=== PATIENT | female | born 1960 | race American Indian/Alaskan Native ===

== ENCOUNTER → 2024-09-28 | Outpatient (CLI) | payer MEDICARE, MEDICAID, SELFPAY ==
--- NOTE | 2024-09-28 13:30 | XR_ITS ---
Examination: CT chest, without intravenous contrast. Sagittal and coronal 2-D reconstructions. Exam date and time: September 28, 2024 1406 hours Comparison January 03, 2024 INDICATIONS: Diagnosis acute and subacute respiratory condition, coughing shortness of breath beginning 2 weeks ago CTDI:vol (mGy) 24.6 DLP: (mGycm) 903 Technique: Multiple 3.0 mm axial sections of the chest to been obtained. Bone and lung density settings are obtained. Sagittal and coronal 2-D reconstructions have been obtained. Low dose protocols were performed. One or more of the following dose reduction techniques were used; automated exposure control, adjustment of the mA and/or KV according to patient size, use of iterative reconstruction technique. Findings: No thoracic aortic aneurysm dilatation Pulmonary artery segments are not remarkable No paratracheal tracheobronchial or bronchopulmonary adenopathy Mild atelectasis in the right middle lobe lingular segment and both bases No lobar pneumonia No pulmonary edema Fatty infiltration throughout the liver Contracted gallbladder Spleen is not enlarged No pancreatic mass Moderate thoracic spondylosis IMPRESSION: No mediastinal lymphadenopathy Mild atelectasis in the right middle lobe, lingular segment and both bases No lobar pneumonia No pulmonary edema
== END | disposition home or self-care (01) ==
LOC: CCTX 13:52
PROVIDERS: PCP Nurse Practitioner Family; Referring Provider Internal Medicine; Visit Provider Internal Medicine
DX: J98.11 Atelectasis (principal); R05.3 Chronic cough
CPT/HCPCS: 71250

== ENCOUNTER → 2025-05-10 | Outpatient (CLI) | payer MEDICARE, MEDICAID, SELFPAY ==
[2025-05-10 16:16] LABS: Basophils # (Auto) 0.1 Thou/mm3 (0.0-0.2); Basophils % (Auto) 1 % (0-2.5); Eosinophils # (Auto) 0.6 Thou/mm3 (0.0-0.5); Eosinophils % (Auto) 7 % (0-10); Hematocrit 45.0 % (36.0-46.0); Hemoglobin 14.8 g/dL (12.0-16.0); Immature Granulocytes Auto 0.04 Thou/mm3 (0.00-0.00); Lymphocytes # (Auto) 2.5 Thou/mm3 (1.0-4.8); Lymphocytes % (Auto) 31 % (10-50); Mean Corpuscular HGB Conc 32.9 g/dl (31.0-37.0); Mean Corpuscular Hemoglobin 32.0 pg (25.0-35.0); Mean Corpuscular Volume 97 fL (80-100); Monocytes # (Auto) 0.6 Thou/mm3 (0.0-0.8); Monocytes % (Auto) 7 % (0-12); Neutrophils # (Auto) 4.4 Thou/mm3 (1.8-7.7); Neutrophils % (Auto) 53 % (37-80); Nucleated Red Blood Cell # 0.00 Thou/mm3 (0.00-0.00); Nucleated Red Blood Cell % 0 /100 WBC (0); Platelet Count 247 Thou/mm3 (140-440); RDW Standard Deviation 45.3 fL (36.4-46.3); Red Blood Count 4.62 Miln/mm3 (4.00-5.20); White Blood Count 8.2 Thou/mm3 (3.6-11.0)
[2025-05-10 16:30] LABS: Glucose Estimated Average 111 mg/dL (80-131); Hemoglobin A1C 5.5 % Hgb (4.8-6.0)
[2025-05-10 16:41] LABS: Alanine Aminotransferase 33 U/L (10-49); Albumin, Serum 4.2 gm/dL (3.4-4.8); Albumin/Globulin Ratio 1.7 (1.2-2.2); Alkaline Phosphatase 102 U/L (46-116); Anion Gap 9 (7-16); Aspartate Amino Transferase 24 U/L (0-34); BUN/Creatinine Ratio 13 Ratio (12-20); Bilirubin,Total 0.4 mg/dL (0.3-1.2); Blood Urea Nitrogen 12 mg/dL (9-23); C-Reactive Protein < 0.5 mg/dL (0.0-0.9); Calcium 10.2 mg/dL (8.3-10.6); Calcium (Corrected) 10.2 mg/dL (8.5-10.1); Carbon Dioxide 28.6 mMol/L (20.0-31.0); Chloride 106 mMol/L (98-107); Creatinine (Component) 0.9 mg/dL (0.6-1.3); Globulin 2.5 gm/dL (2.3-3.5); Glucose 90 mg/dL (74-106); Osmolality,Calculated 286 (275-295); Potassium 4.4 mMol/L (3.4-5.1); Sodium 144 mMol/L (136-145); Total Protein 6.7 gm/dL (5.7-8.2); eGFR > 60 See Note
[2025-05-10 16:58] LABS: Sed Rate (ESR) 7 mm/hr (0-30)
== END | disposition home or self-care (01) ==
LOC: COPL 15:44
PROVIDERS: PCP Nurse Practitioner Family; Referring Provider Internal Medicine; Visit Provider Internal Medicine
DX: G89.29 Other chronic pain (principal); I10 Essential (primary) hypertension; J45.909 Unspecified asthma, uncomplicated; J45.991 Cough variant asthma; M05.79 Rheumatoid arthritis with rheumatoid factor of multiple sites without organ or systems involvement; M17.12 Unilateral primary osteoarthritis, left knee; M25.572 Pain in left ankle and joints of left foot; M54.42 Lumbago with sciatica, left side; M62.838 Other muscle spasm; R53.83 Other fatigue; R76.11 Nonspecific reaction to tuberculin skin test without active tuberculosis; Z79.899 Other long term (current) drug therapy
CPT/HCPCS: 36415; 80053; 83036; 85025; 85652; 86140

== ENCOUNTER 2025-09-10 07:07 | Emergency (ER) | payer MEDICARE, MEDICAID, SELFPAY ==
[2025-09-10] VITALS (10 sets, daily range): BP systolic 97–146; BP diastolic 62–92; PULSE 87–99; RESP 17–21; TEMP 36.7–36.9; O2SAT 88–100; BMI 47.8
--- NOTE | 2025-09-10 08:06 | EKG_ITS ---
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
--- NOTE | 2025-09-10 08:06 | XR_ITS ---
AP portable semiupright chest film, single view, on 09/10/2025 at 8:20 9:00 a.m. Comparison study 07/16/2023 CLINICAL HISTORY: Shortness of breath for 1 week history of asthma FINDINGS: There is mild-moderate cardiomegaly unchanged from the previous chest film. On the previous chest film there were numerous chronic curvilinear strands of fibrosis seen over the base of both right and left lower lobes. These are felt to relate to old remote episodes of pneumonitis most likely on today's chest for these are also visible, there is no pulmonary venous hypertension there is some increased visibility of the vasculature in the base of both lower lungs, the appearance does raise the possibility of some mild interstitial infiltrate or congestion. Upper two thirds of both lungs are clear. In the spine there is major degenerative disc space narrowing with surrounding osteophytes throughout the middle third of the dorsal spine, with mild is moderate convexity to the right IMPRESSION: 1. Mild chronic cardiomegaly unchanged 2. Chronic longstanding curvilinear strands of fibrosis over the lower third of both lung unchanged. 3. Today's film shows increased prominence of the pulmonary vascular markings in the base of both lower lobes I would suggest careful pulmonary auscultation over these regions. However they are suggestive of probable bibasilar areas of minimal interstitial infiltrate or congestion. 4: Advanced multilevel degenerative disc disease throughout most of the dorsal spine unchanged
--- NOTE | 2025-09-10 08:26 | PD.EDSOB ---
ED SOB =RME/HPI General Chief Complaint: Shortness of Breath/Dyspnea Stated Complaint: SOB Time Seen by Provider: 09/10/25 07:38 Arrival date/time: 09/10/25 07:07 RME / HPI RME / HPI Narrative: 64-year-old female coming in for evaluation of shortness of breath, chest pain, wheezing that woke her this morning. Notes that she was diagnosed with pneumonia approximately a week ago and has been dealing with cough for approximately 2 weeks with on and off rhinorrhea. Positive sick contact at home with similar. Denies any fever, abdominal pain, other acute symptoms at this time otherwise. Is on home oxygen 2 L at night. 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 Was given neb treatment en route by EMS with significant improvement in symptoms. EMS noted patient was 88% on room air at home. Related Data Home Medications ?Medication ?Instructions ?Recorded ?Confirmed albuterol sulfate 90 mcg/actuation 2 puff inhalation PRN PRN Wheezing 08/09/22 04/28/24 aerosol inhaler lisinopril 10 mg tablet 10 mg PO DAILY 08/09/22 04/28/24 benzonatate 100 mg capsule 100 mg PO TID PRN Cough 08/10/22 08/10/22 fluticasone propionate 110 1 puff inhalation BID 08/10/22 04/28/24 mcg/actuation HFA aerosol inhaler (Flovent HFA) cetirizine 10 mg tablet 10 mg PO QDAY 04/28/24 04/28/24 tocilizumab 162 mg/0.9 mL 162 mg subcut QWEEK 04/28/24 04/28/24 subcutaneous pen injector (Actemra ACTPen) Previous Rx's ?Medication ?Instructions ?Recorded albuterol sulfate 2.5 mg/3 mL 2.5 mg (3 mL) inhalation Q4H PRN 09/10/25 (0.083 %) solution for nebulization shortness of breath or wheezing #180 mL azithromycin 500 mg tablet 500 mg PO QDAY 3 days #3 tabs 09/10/25 ipratropium bromide 0.02 % 2.5 ml inhalation Q4H PRN 09/10/25 solution for inhalation shortness of breath or wheezing #62.5 mL ipratropium bromide 0.02 % 500 mcg (2.5 mL) inhalation Q4H 09/10/25 solution for inhalation PRN shortness of breath or wheezing #62.5 mL prednisone 50 mg tablet 50 mg PO QDAY 5 days #5 tabs 09/10/25 Allergies Allergy/AdvReac Type Severity Reaction Status Date / Time No Known Drug Allergies Allergy Verified 04/28/24 14:07 Review of Systems Review of Systems Systems Reviewed: All systems reviewed, normal except as documented Past Medical History Past Medical History 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 CARDIAC: Positive Cardiac Disorders and Hypertension RESPIRATORY: Positive Asthma, Bronchitis, Pneumonia and Tuberculosis MUSCULOSKELETAL: Positive Musculoskeletal Disorders and Rheumatoid Arthritis OTHER HISTORY: Positive Chicken Pox Surgical History SURGICAL: Positive Section Social History SMOKING STATUS: Former smoker SECOND HAND EXPOSURE: No SUBSTANCE USE: marijuana OCCUPATION: [employer] Past Medical History Comments PMH COMMENT: Asthma, hypertension, rheumatoid arthritis ED Exam Narrative Physical exam: Constitutional: Awake, alert, nontoxic, obese, currently in no acute distress HEENT: Normocephalic, atraumatic, extraocular movements intact. CV: Regular rate and rhythm, no murmurs/rubs/gallops Lungs: Generalized expiratory wheezing, no respiratory distress. Abd: Soft, NT, ND, no HSM noted to palpation Extremities: No deformities, trace edema distal lower extremities. Neuro: AAOx3, no acute neuro deficit noted. Skin: Warm, dry, intact Course Quality Measures none Orders Category Date Time Status Inpatient Services Director NOW Care 09/10/25 08:06 Active Continuous Pulse Oximetry NOW Care 09/10/25 08:06 Completed EKG (ED ONLY) *Do not use* NOW Care 09/10/25 08:06 Completed Insert IV STAT Care 09/10/25 08:06 Active EKG (ED Only) Stat Exams 09/10/25 08:06 Draft XR chest 1V portable Stat Exams 09/10/25 08:06 Completed CBC Stat Lab 09/10/25 08:00 Completed Comprehensive Metabolic Panel Stat Lab 09/10/25 08:00 Completed Troponin I Stat Lab 09/10/25 08:00 Completed ALBUTEROL RT 3ml [Proventil Rt 3ml] Med 09/10/25 08:06 Discontinued 2.5 mg INH X1 ONE Albuterol/Ipratr Rt Tawny [Duoneb Rt Tawny] Med 09/10/25 08:06 Discontinued 3 ml INH X1 ONE Influenza Vaccine [Influenza Quad Vaccine 09/10/25 07:31 Discontinued 26] 0.5 ml IMI .ONCE ONE dexAMETHasone INJ [Decadron Inj] Med 09/10/25 08:06 Discontinued 10 mg IVP X1 ONE Oxygen Delivery NOW RT 09/10/25 08:06 Active Vital Signs Vital signs: Vital Signs Temperature 98.0 F 09/10/25 07:31 Pulse Rate 89 09/10/25 07:31 Respiratory Rate 21 H 09/10/25 07:31 Blood Pressure 146/92 H 09/10/25 07:31 Pulse Oximetry (%) 100 09/10/25 07:31 Oxygen Delivery Method Nasal Cannula 09/10/25 07:31 Oxygen Flow Rate 4 09/10/25 07:31 Shortness of Breath / Dyspnea MDM Narrative MDM Narrative:: 64-year-old female coming in for evaluation of shortness of breath with wheezing as well as chest pain earlier this morning. No initial improvement with neb at home though did improve with neb for EMS en route. Recently diagnosed with pneumonia for which she is just completing a course of antibiotics. Afebrile and otherwise vitally stable with current sats in the high 90s on 2 L. Is on 2 L nasal cannula at night. Labs and imaging ordered for further evaluation. Additionally and treatment given due to wheezing on initial presentation. Improved on reevaluation. Patient ambulated on home oxygen and sats are 90%. Does not appear in respiratory distress with ambulation. Believe will be okay for discharge home with strict return precautions and close outpatient follow-up. Have advised on steroid burst for home given the wheezing that she has been having as well as an additional course of azithromycin for home. Will give refill albuterol for nebs. Stable for discharge. Patient data External records reviewed:: [facility] previous records and EMS form Clinical information provided by:: patient and EMS Social determinants that could affect healthcare access:: none Patient has the following chronic illnesses:: Asthma, hypertension How is presenting disease/condition affected by chronic disease/condition?: exacerbated by Evaluation data The following diagnostics were reviewed and interpreted by me:: lab results, radiology exam(s) and EKG tracing(s) (EKG @ 08:39h, interpreted by me, normal sinus rhythm, rate 88, left bundle branch block. ) Lab and/or radiology exams considered but not ordered:: None Interpretation Summary: Ordering Physician: Makeda Frankel MD Date of Service: 09/10/25 Procedure(s): XR chest 1V portable Accession Number(s): [id number] cc: Jason Isabel MD; Makeda Frankel MD~ AP portable semiupright chest film, single view, on 09/10/2025 at 8:20 9:00 a.m. Comparison study 07/16/2023 CLINICAL HISTORY: Shortness of breath for 1 week history of asthma FINDINGS: There is mild-moderate cardiomegaly unchanged from the previous chest film. On the previous chest film there were numerous chronic curvilinear strands of fibrosis seen over the base of both right and left lower lobes. These are felt to relate to old remote episodes of pneumonitis most likely on today's chest for these are also visible, there is no pulmonary venous hypertension there is some increased visibility of the vasculature in the base of both lower lungs, the appearance does raise the possibility of some mild interstitial infiltrate or congestion. Upper two thirds of both lungs are clear. In the spine there is major degenerative disc space narrowing with surrounding osteophytes throughout the middle third of the dorsal spine, with mild is moderate convexity to the right IMPRESSION: 1. Mild chronic cardiomegaly unchanged 2. Chronic longstanding curvilinear strands of fibrosis over the lower third of both lung unchanged. 3. Today's film shows increased prominence of the pulmonary vascular markings in the base of both lower lobes I would suggest careful pulmonary auscultation over these regions. However they are suggestive of probable bibasilar areas of minimal interstitial infiltrate or congestion. 4: Advanced multilevel degenerative disc disease throughout most of the dorsal spine unchanged Dictated By: Jason Isabel MD Signed By: <Electronically signed by Jason Isabel MD in [place]> 09/10/25 0924 Medications / Prescriptions Medications or Prescriptions considered but not ordered:: None Medication administrations:: Medication Administration History Discontinued Medications Albuterol (Albuterol Rt 2.5 Mg/3 Ml Nebu) 2.5 mg INH X1 ONE Stop: 09/10/25 08:07 Last Admin: 09/10/25 08:46 Dose: 2.5 mg Documented By: MW Albuterol/Ipratropium (Albuterol/Ipratropium (Duoneb) Rt Tawny 3 Ml Nebu) 3 ml INH X1 ONE Stop: 09/10/25 08:07 Last Admin: 09/10/25 08:46 Dose: 3 ml Documented By: EMANI Dexamethasone Sodium Phosphate (Dexamethasone Sod Phos Inj 10 Mg/Ml Vial) 10 mg IVP X1 ONE Stop: 09/10/25 08:07 Last Admin: 09/10/25 08:21 Dose: 10 mg Documented By: ABBY Influenza Virus Vaccine Quadrival (Influenza Virus 0.5 Ml Syringe ) 0.5 ml IMi .ONCE ONE Stop: 09/10/25 07:32 Last Admin: 09/10/25 11:33 Dose: 0.5 ml Documented By: ABBY See above Consultations Consultation(s) initiated? (list below): No Diagnosis Shortness of Breath Differential Diagnosis: acute exacerbation of chronic obstructive airways disease, congestive heart failure, community acquired pneumonia and asthma with exacerbation Most likely diagnosis given after review of the tests above:: pneumonia, bronchospasm Admission Indicated Admission indicated?: not indicated Admission Request Was there a request for admission?: No Disposition Plan Disposition Plan: Discharge Discharge Attestation Discharge Attestation: The patient and all family members were given an opportunity to ask questions and understood the discharge instructions. Discharge instructions specifically effects, indications for sooner follow up or return to the emergency department, and the expected course of current diagnosis. Patient condition: Stable Discharge Plan Plan Patient Disposition: HOME (Self Care) Patient condition on transfer: Stable Prescriptions/Referrals Prescriptions/Med Rec: New prednisone 50 mg tablet 50 mg PO QDAY 5 Days Qty: 5 0RF albuterol sulfate 2.5 mg /3 mL (0.083 %) solution for nebulization 2.5 mg inhalation Q4H PRN (Reason: shortness of breath or wheezing) Qty: 180 0RF azithromycin 500 mg tablet 500 mg PO QDAY 3 Days Qty: 3 0RF ipratropium bromide 0.02 % solution 500 mcg inhalation Q4H PRN (Reason: shortness of breath or wheezing) Qty: 62.5 0RF Rx Instructions: for 3 doses ipratropium bromide 0.02 % solution 2.5 ml inhalation Q4H PRN (Reason: shortness of breath or wheezing) Qty: 62.5 0RF No Action fluticasone propionate [Flovent HFA] 110 mcg/actuation HFA aerosol inhaler 1 puff INHALATION BID benzonatate 100 mg capsule 100 mg PO TID PRN (Reason: Cough) Patient Comments: TAKE 1 CAPSULE BY MOUTH THREE TIMES DAILY NEEDED FOR COUGH lisinopril 10 mg tablet 10 mg PO DAILY albuterol sulfate 90 mcg/actuation HFA aerosol inhaler 2 puff INHALATION PRN PRN (Reason: Wheezing) Patient Comments: INL 2 PFS PO Q 4 TO 6 H PRN cetirizine 10 mg tablet 10 mg PO QDAY Patient Comments: TAKE 1 TABLET BY MOUTH EVERY DAY NEEDED FOR ALLERGIES Actemra ACTPen 162 mg/0.9 mL pen injector 162 mg SUBCUT QWEEK Referrals: Audi([facility] [place] [place]Janett PA-C [Primary Care Provider] - In 1 week Problem List Clinical Impression: Community acquired pneumonia, Acute bronchospasm Patient/Caregiver Discharge Instructions Education Materials: ED Bronchospasm (Adult), ED Pneumonia (Adult) Additional Instructions: Use albuterol nebs every 4 hours as needed for wheezing and shortness of breath. Take the prescriptions given daily until completed. Follow-up with your primary doctor closely in the next few days for recheck. Return to the emergency department for any worsening symptoms. Some general health principles that can help you are the [place] principles: Nutrition (eat a plant-based diet, avoiding meats in general, avoiding highly processed foods) Exercise (Daily exercise/walks as tolerated) Water (Drink adequate fresh water to maintain hydration, concentrating on water rather than on soda, coffee, tea, juice, etc for hydration) [place] (Spend time - 15-20 minutes or so with skin exposed in the early childhood associate teacher and late evening sun for Vitamin D health benefits) [place] (Avoid alcohol, illicit drugs, caffeinated beverages, smoking, etc) Air (Deep breathing exercises in the early mornings in fresh air) Rest (Adequate rest at night, going to bed a few hours before midnight and avoiding all screens/television/loud music in the time right before going to bed, also avoiding heavy meals just prior to going to bed) Trust in God (Spend time daily in Bible study and prayer - health benefits in contemplation of God's true character) Additional resources that can benefit: [email or web address], look under resources and seminars. Another good website is [email or web address] Print Language: Ethiopian Stand Alone Forms: Irene Award Info., Patient Portal Info Letter
[2025-09-10 08:34] LABS: Basophils # (Auto) 0.1 Thou/mm3 (0.0-0.2); Basophils % (Auto) 1 % (0-2.5); Eosinophils # (Auto) 0.7 Thou/mm3 (0.0-0.5); Eosinophils % (Auto) 7 % (0-10); Hematocrit 43.7 % (36.0-46.0); Hemoglobin 14.7 g/dL (12.0-16.0); Immature Granulocytes Auto 0.02 Thou/mm3 (0.00-0.00); Lymphocytes # (Auto) 3.4 Thou/mm3 (1.0-4.8); Lymphocytes % (Auto) 36 % (10-50); Mean Corpuscular HGB Conc 33.6 g/dl (31.0-37.0); Mean Corpuscular Hemoglobin 32.4 pg (25.0-35.0); Mean Corpuscular Volume 96 fL (80-100); Monocytes # (Auto) 0.6 Thou/mm3 (0.0-0.8); Monocytes % (Auto) 6 % (0-12); Neutrophils # (Auto) 4.7 Thou/mm3 (1.8-7.7); Neutrophils % (Auto) 50 % (37-80); Nucleated Red Blood Cell # 0.00 Thou/mm3 (0.00-0.00); Nucleated Red Blood Cell % 0 /100 WBC (0); Platelet Count 248 Thou/mm3 (140-440); RDW Standard Deviation 45.4 fL (36.4-46.3); Red Blood Count 4.54 Miln/mm3 (4.00-5.20); White Blood Count 9.4 Thou/mm3 (3.6-11.0)
--- NOTE | 2025-09-10 08:45 | PC.NURSE ---
PT BIBA ([facility]) FOR C/O SOB. PER DTR PT'S LIPS WERE CYANOTIC AND HAD A PERSISTENT COUGH. PT WAS DX WITH PNA X5 DAYS AGO WHICH SHE WAS RX ANTIBX. PT HAS NOT COMPLETED DO SEAT THIS TIME. REPORTS OF A PRODUCTIVE COUGH WITH WHITE AND YELLOW PHLEGM. PT IS ON 2L OF OXYGEN BUT IN ROUTE WAS PLACED ON 4 L TO MAINTAIN OXYGEN LEVELS ABOVE 90%. AMBULANCE ADMINISTERED BREATHING TX, WHICH HELPED PT BREATH BETTER. CURRENTLY PT IS SITTING UP WITH NORMAL RR OXYGEN 100% ON 4 L, AND ABLE TO SPEAK WITHOUT GETTING SOB. DECADRON IV WAS ORDERED AND ADMINISTERED ALONG WITH BREATHING TX. PT VERBALIZED UNDERSTANDING OF POC.
[2025-09-10] MEDS: ALBUTEROL RT 2.5 MG/3 ML NEBU INH (08:46)
[2025-09-10] MEDS: ALBUTEROL/IPRATROPIUM (Duoneb) RT SOL 3 ML NEBU INH (08:46)
[2025-09-10 08:47] LABS: Alanine Aminotransferase 27 U/L (10-49); Albumin, Serum 4.3 gm/dL (3.4-4.8); Albumin/Globulin Ratio 1.6 (1.2-2.2); Alkaline Phosphatase 80 U/L (46-116); Anion Gap 9 (7-16); Aspartate Amino Transferase 23 U/L (0-34); BUN/Creatinine Ratio 15 Ratio (12-20); Bilirubin,Total 0.4 mg/dL (0.3-1.2); Blood Urea Nitrogen 12 mg/dL (9-23); Calcium 9.0 mg/dL (8.3-10.6); Calcium (Corrected) 9.0 mg/dL (8.5-10.1); Carbon Dioxide 29.8 mMol/L (20.0-31.0); Chloride 108 mMol/L (98-107); Creatinine (Component) 0.8 mg/dL (0.6-1.3); Estimated Creatinine Clearance 92.6 mL/min (>60); Globulin 2.7 gm/dL (2.3-3.5); Glucose 99 mg/dL (74-106); Osmolality,Calculated 292 (275-295); Potassium 3.6 mMol/L (3.4-5.1); Sodium 147 mMol/L (136-145); Total Protein 7.0 gm/dL (5.7-8.2); Troponin I < 0.020 ng/mL (0.0-0.045); eGFR > 60 See Note
== END 2025-09-10 15:18 | disposition home or self-care (01) ==
PROVIDERS: Emergency Provider Family Medicine; PCP Nurse Practitioner Family
DX: J18.9 Pneumonia, unspecified organism (principal); J98.01 Acute bronchospasm; I44.7 Left bundle-branch block, unspecified; I11.9 Hypertensive heart disease without heart failure; I50.9 Heart failure, unspecified; J84.10 Pulmonary fibrosis, unspecified; M51.34 Other intervertebral disc degeneration, thoracic region; Z87.891 Personal history of nicotine dependence
CPT/HCPCS: 36415; 71045; 80053; 84484; 85025; 90471; 90686; 93005; 94640; 99284; A9270; J1100; G0008; J9060